=== PATIENT | female | born 1995 | race Caucasian/White ===

== ENCOUNTER 2021-03-19 09:55 | Inpatient (IN) | payer OTHER, SELFPAY ==
[2021-03-19] VITALS (7 sets, daily range): BP systolic 110–141; BP diastolic 78–91; PULSE 88–109; RESP 14–18; TEMP 36.6–39.2; O2SAT 96–100; BMI 27.8; BMI 29.0
--- NOTE | 2021-03-19 10:15 | CT_ITS ---
STUDY: CT ABDOMEN AND PELVIS WITHOUT CONTRAST REASON FOR EXAM: Female, 25 years old. Abdominal pain. The patient is 11 days . RADIATION DOSAGE (If Supplied By Facility): CTDIvol = ( 8.52 ) mGy, DLP = ( 455.68 ) mGycm TECHNIQUE: Transaxial images were obtained from the dome of the diaphragm to the symphysis pubis without oral contrast, and without intravenous contrast. Sagittal and coronal images were reconstructed. Individualized dose optimization techniques were used for this CT. COMPARISON: None. FINDINGS: Patchy bibasilar pulmonary infiltrates worse on the right side. The visualized portions of the heart are within normal limits. Normal liver. Small solitary gallstone. Normal spleen. Normal pancreas. Normal bilateral adrenal glands. Normal right kidney. Normal left kidney. There is a small hiatal hernia. Inflammatory changes are seen within the peritoneal fat in the mid and lower abdomen. There appears to be inflammatory changes of the jejunal loops. A small amount of fluid is seen in the right paracolic gutter. Normal colon. The appendix is visualized and appears normal. Normal abdominal aorta. Normal inferior vena cava. Normal retroperitoneum. Normal urinary bladder. There is diffuse enlargement of the uterus. Normal abdominal wall. Normal osseous structures. CT/Abdomen/Pelvis without Cont IMPRESSION: Diffuse enlargement of the uterus in keeping with recent delivery. Inflammatory changes are seen within the small bowel loops in the region of the jejunum with fluid in the right paracolic gutter. Gastroenteritis should be ruled out. Small gallstone. Bibasilar pulmonary infiltrates worse on the right side. Electronically Signed: Tr Cherry MD at 11:38 EST , Service support ,
--- NOTE | 2021-03-19 10:16 | EDS_ITS ---
HPI HPI - GI History of Present Illness Chief Complaint: Abd Pain Detail of Chief Complaint: Abdominal pain Informant: patient Narrative Narrative: Patient presents to the emergency department complaint of abdominal pain for over a week. Patient states that initially she had fever up to 103. She had decreased appetite. Patient also had some diarrhea intermittently. Patient took amoxicillin for 3 days and saw primary care physician yesterday and continued on amoxicillin. Patient delivered a baby on March 08. She is not having any vaginal bleeding currently. She denies urinary symptoms. She has had no prior abdominal surgeries. She currently rates her pain a 5 out of 10. PFSH PFSH Allergy/AdvReac Type Severity Reaction Status Date / Time No Known Allergies Allergy Verified 03/19/21 09:58 Social History Smoking Status: Never smoker ROS ROS ED Constitutional Constitutional ED: Reports systems reviewed and no addt'l complaints, except as documented; Denies body ache(s), change in weight or chills Eyes Eyes: Denies acute decrease in peripheral vision, change in vision, double vision or loss of vision ENT ENT ED: Reports none; Denies ear pain, lip swelling, loss taste/smell, neck pain, otalgia or sore throat Cardiovascular Cardiovascular: Reports none; Denies abdominal pain, chest pain with activity, leg edema, lightheadedness, palpitations, rapid heart rate or syncope Respiratory/Chest Respiratory/Chest: Reports none; Denies change in mental status, dry cough, dyspnea, hemoptysis, shortness of breath at rest or shortness of breath with exertion Gastrointestinal Gastrointestinal: Reports none, abdominal pain, diarrhea and nausea; Denies change in stool character, hematemesis, hematochezia, melena, rectal bleeding or vomiting Genitourinary Genitourinary ED: Reports none; Denies abdominal discomfort, anuria, dysuria, genital pain or polyuria Musculoskeletal Musculoskeletal: Reports none; Denies arthralgias, back pain, difficulty walking, extremity pain, muscle weakness or myalgias Integumentary Reports none; Denies abscess or rash Neurologic Neurologic: Reports none; Denies abnormal gait, confusion, focal weakness, frequent falls, headache(s), loss of vision, numbness, paresthesias, radicular pain, vertigo or weakness Psychiatric Psychiatric: Reports systems reviewed and no addt'l complaints, except as documented and none; Denies behavioral changes, confusion, difficulty concentrating, hallucinations, suicidal ideation, tactile hallucinations or visual hallucinations Endocrine Endocrinology: Denies none, cold intolerance, excessive sweating, fatigue or heat intolerance Hematologic/Lymphatic Hematologic/Lymphatic: Reports none; Denies anemia, easy bleeding or easy bruising Allergic/Immunologic Allergic/Immunologic ED: Denies as per HPI, none, lip swelling, mouth swelling, throat swelling, tongue swelling or hives EXAM Physical Exam Const Vital Signs: 03/19/21 09:56 03/19/21 13:00 Temperature 98 F Temperature Source Temporal Pulse Rate 109 H Respiratory Rate 18 14 Blood Pressure 110/87 H Blood Pressure Mean 94 Pulse Ox 100 Oxygen Delivery Method Room Air Positive well nourished and well developed General Appearance ED: well developed and NAD HEENT Reports TM's clear and moist mucous membranes normocephalic and atraumatic; Negative for trauma or tenderness Tympanic Membrane ED: Yes TM's clear Eyes PERRL and EOMs intact bilaterally General Eye ED: Negative for pale conjunctiva or scleral icterus Neck no lymphadenopathy, supple and no JVD General: Negative for tenderness Chest Wall inspection of chest normal and palpation of chest normal Chest: Negative for tenderness Resp normal respiratory effort and clear to auscultation bilaterally Effort and Inspection: Negative for respiratory distress or pain with movement Auscultation: Negative for rhonchi, wheezes or diminished lung sounds Cardio regular rate, regular rhythm, S1 normal heart sound, S2 normal heart sound and no murmurs Peripheral Pulses: pulses 2+ throughout GI normal to inspection, nondistended, normoactive bowel sounds, soft to palpation, non-tender, non-distended and no masses GI Narrative: Patient with diffuse tenderness to palpation over the right lower quadrant low left lower quadrant with guarding. She has some mild rebound. No tenderness over right upper quadrant with a negative Baker sign. Palpation: tender Back/Spine no CVA tenderness and no thoracic nor lumbar tenderness Extremity normal to inspection General Extremety ED: Negative for edema General Extremity: Negative for edema Neuro oriented x3, CN's II-XII intact bilaterally, no sensory deficits noted and gait normal Sensorium / Orientation: awake, alert, oriented to person, oriented to place and oriented to time Motor Exam: strength 5/5 throughout and strength abnormal Psych mental status grossly normal Skin no rashes or lesions noted and no wounds MDM MDM MDM Narrative Medical decision making narrative: IV line established on arrival. Patient had a CT scan of the abdomen without contrast initially which showed fluid in the right colic gutter and inflammatory changes of the small bowel. Appendix was not visualized. Ultrasound of the pelvis obtained which showed enlarged uterus without evidence of of retained products. I discussed case with general surgeon on-call as I was concerned about patient's exam and concern for ruptured appendicitis. I started patient on Zosyn. I was asked by surgeon to obtain a CT scan with IV and p.o. contrast which will be performed. Care of patient turned over to evening physician awaiting results and final disposition for abdominal pain Lab Data Attestation: I reviewed the patient's lab results. Labs: Laboratory Results - last 24 hr 03/19/21 03/19/21 03/19/21 10:35 10:35 10:35 WBC 12.1 H RBC 3.61 L Hgb 10.4 L Hct 33.3 L MCV 92.2 MCH 28.8 MCHC 31.2 L RDW Std Deviation 51.8 H RDW Coeff of Ranjana 15.3 H Plt Count 638 H MPV 9.4 Neut % (Auto) Not Reportable Absolute Neuts (auto) 9.8 H Absolute Lymphs (auto) 1.70 Total Counted 100 Neutrophils % (Manual) 81 H Lymphocytes % (Manual) 14 L Myelocytes % 3 H Promyelocytes % 2 H Diff Path Review May foll Platelet Estimate MKD INC RBC Morphology NORM C+C Sodium 139 Potassium 3.8 Chloride 104 Carbon Dioxide 28.0 Anion Gap 7 BUN 6 L Creatinine 0.58 Estim Creat Clear Calc 130.27 Est GFR (MDRD) Af Amer 166 Est GFR (MDRD) Non-Af 137 BUN/Creatinine Ratio 10.4 Glucose 83 Lactic Acid 0.7 Calcium 8.4 L Total Bilirubin 0.30 AST 18 ALT 21 Alkaline Phosphatase 131 H Total Protein 8.0 Albumin 1.9 L Globulin 6.1 H Albumin/Globulin Ratio 0.3 L Urine Color Urine Clarity Urine pH Ur Specific [place] Urine Protein Urine Glucose (UA) Urine Ketones Urine Occult Blood Urine Nitrite Urine Bilirubin Urine Urobilinogen Ur Leukocyte Esterase Urine RBC Urine WBC Ur Squamous Epith Cells Urine Bacteria Urine Mucus 03/19/21 11:00 WBC RBC Hgb Hct MCV MCH MCHC RDW Std Deviation RDW Coeff of Ranjana Plt Count MPV Neut % (Auto) Absolute Neuts (auto) Absolute Lymphs (auto) Total Counted Neutrophils % (Manual) Lymphocytes % (Manual) Myelocytes % Promyelocytes % Diff Path Review Platelet Estimate RBC Morphology Sodium Potassium Chloride Carbon Dioxide Anion Gap BUN Creatinine Estim Creat Clear Calc Est GFR (MDRD) Af Amer Est GFR (MDRD) Non-Af BUN/Creatinine Ratio Glucose Lactic Acid Calcium Total Bilirubin AST ALT Alkaline Phosphatase Total Protein Albumin Globulin Albumin/Globulin Ratio Urine Color Yellow Urine Clarity Clear Urine pH 7.0 Ur Specific [place] 1.010 Urine Protein Negative Urine Glucose (UA) Normal Urine Ketones 5 H Urine Occult Blood 25 H Urine Nitrite Negative Urine Bilirubin Negative Urine Urobilinogen Normal Ur Leukocyte Esterase 100 H Urine RBC 0 SEEN Urine WBC 10-25 SEEN Ur Squamous Epith Cells 0-5 SEEN Urine Bacteria 1+ Urine Mucus 0 SEEN Radiography Diagnostic Testing: Clinical Impression(s) from Imaging Studies Abdomen/Pelvis CT 03/19/21 10:15 IMPRESSION: Diffuse enlargement of the uterus in keeping with recent delivery. Inflammatory changes are seen within the small bowel loops in the region of the jejunum with fluid in the right paracolic gutter. Gastroenteritis should be ruled out. Small gallstone. Bibasilar pulmonary infiltrates worse on the right side. Electronically Signed: Tr Cherry MD at 11:38 EST , Service support , ADDENDUM: 03/19/21 1239 Pelvis Ultrasound 03/19/21 11:40 IMPRESSION: Enlarged uterus. Small amount of free fluid in the pelvis. Electronically Signed: Tr Cherry MD at 13:04 EST , Service support , Discharge Plan Triage Chief Complaint: Abd Pain ED Provider: Sudhir Metcalf Dx/Rx/DC Orders Clinical Impression: Abdominal pain Primary Care Provider: Can Solo Referrals: Can Solo DO [Primary Care Provider] -
[2021-03-19 10:42] LABS: Hematocrit 33.3 % (37-47); Hemoglobin 10.4 g/dL (12.0-15.0); Mean Corp Hgb Conc 31.2 g/dL (32-36); Mean Corpuscular Hgb 28.8 pg (27.0-32.0); Mean Corpuscular Volume 92.2 fL (81-99); Mean Platelet Vol. 9.4 fl (6.2-12.0); POSITIVE COUNT YES; POSITIVE MORPHOLOGY YES; Platelet Count 638 K/mm3 (150-450); RBC Distribution Width CV 15.3 % (11.6-14.6); RBC Distribution Width SD 51.8 fl (35.1-43.9); Red Blood Count 3.61 M/mm3 (4.2-5.4); White Blood Count 12.1 K/mm3 (4.4-11.0)
[2021-03-19 10:44] LABS: Differential Indicated MANUAL DIFF
[2021-03-19 10:59] LABS: ALB/GLOB Ratio 0.3 RATIO (0.9-2.4); AST(SGOT) 18 U/L (15-37); Alanine Aminotransfer ALT/SGPT 21 U/L (13-56); Albumin, Serum 1.9 g/dL (3.2-5.0); Alkaline Phosphatase 131 U/L (45-117); Anion Gap 7 (5-15); BUN 6 mg/dL (7-18); BUN/Creat Ratio 10.4 RATIO (10-20); Calcium,Total 8.4 mg/dL (8.5-10.1); Chloride 104 mmol/L (98-107); Creatinine, Serum 0.58 mg/dL (0.55-1.02); EST Glomerular Filtration Rate 137 mL/min (>60); Est Glom Filt Rate - Afr Amer 166 mL/min (>60); Estimated Creatinine Clearance 130.27 ml/min; Globulin 6.1 g/dL (2.2-4.2); Glucose 83 mg/dL (74-106); Potassium 3.8 mmol/L (3.5-5.1); Sodium Level 139 mmol/L (136-145)
[2021-03-19 11:05] LABS: Lactic Acid 0.7 mmol/L (0.4-1.9)
[2021-03-19 11:09] LABS: Lymphocyte 14 % (19-41); Myelocyte 3 % (0-0); Neutrophil-Segmented 81 % (47-70); Promyelocyte 2 % (0-0); Total Cells Counted 100 (MANUAL DIFF)
[2021-03-19 11:10] LABS: Platelet Estimate MKD INC (ADEQ); Red Cell Morphology NORM C+C NORMAL (NORM C&C)
[2021-03-19 11:11] LABS: Mucous, Urine 0 SEEN /hpf (<or=2+); Red Blood Cells-Urine 0 SEEN /hpf (0-5)
[2021-03-19 11:11] LABS: Absolute Neutrophil Count 9.8 X10^3/uL (2.0-7.7)
[2021-03-19 11:13] LABS: Color, Urine Yellow (Yellow); Glucose, Dipstick Normal (Normal); Ketone-Dipstick 5 mg/dl (Negative); Leukocyte Esterase-Dipstick 100 /ul (Negative); Nitrite-Dipstick Negative (Negative); Occult Blood-Urine 25 /ul (Negative); Protein-Dipstick Negative (Negative); Urine Bilirubin Dipstick Negative (Negative); Urine Clarity Clear (Clear); Urine Urobilinogen Normal (Normal)
[2021-03-19 11:20] LABS: Bacteria 1+ /hpf (None Seen); Squamous Epithelial Cells - UA 0-5 SEEN /hpf (5-10); White Blood Cells 10-25 SEEN /hpf (0-5)
--- NOTE | 2021-03-19 11:40 | US_ITS ---
STUDY: ULTRASOUND OF THE FEMALE PELVIS - COMPLETE REASON FOR EXAM: Female, 25 years old. Pelvic pain, rule out retained products LMP: Recent . TECHNIQUE: Transabdominal and Transvaginal TECHNICAL QUALITY: Adequate. COMPARISON: None. FINDINGS: The uterus is anteverted and is in a midline position. The uterus measures 15.6 cm x 9.1 cm x 6.8 cm. Normal uterine cervix. The endometrium measures 4 mm in thickness, and is hyperechoic. There is no demonstrated endometrial mass. There is no demonstrated myometrial mass. I.U.D. - The patient does not have an I.U.D. The right ovary is visualized. The right ovary measures 5.2 cm x 4.2 cm x 3.9 cm. There is no right ovarian cyst or ovarian mass. There is no visualized right adnexal mass or complex lesion. There is normal arterial and normal venous vascularity. The left ovary is visualized. The left ovary measures 4.1 cm x 4.5 cm x 3.9 cm. There is no left ovarian cyst or ovarian mass. There is no visualized left adnexal mass or complex lesion. There is normal arterial and normal venous vascularity. There is minimal fluid in the cul-de-sac. The pre void volume of the bladder was 273 ml. US/Pelvic (Non ) IMPRESSION: Enlarged uterus. Small amount of free fluid in the pelvis. Electronically Signed: Tr Cherry MD at 13:04 EST , Service support ,
[2021-03-19] MEDS: 0.9% Normal Saline 1,000 ML 125 ML IV ×2 (11:55→21:12)
--- NOTE | 2021-03-19 12:20 | ED.RN ---
Due to concerns regarding nursing infant child, patient refused pain and nausea medications. Patient stated pain was tolerable without being medicated at 5/10.
--- NOTE | 2021-03-19 14:02 | CT_ITS ---
We are attempting to reach an attending provider to discuss findings. An addendum with communication details will be sent when the communication is complete. STUDY: CT Abdomen And Pelvis W/ Contrast Injection 03/19/2021 4:35 PM REASON FOR EXAM: Female, 25 years old. VAGINAL DELIVERY X11 DAYS AGO PAIN IN ABD SINCE DELIVERYabdominal pain TECHNIQUE: Transaxial images were obtained with oral contrast, and with Oral and IV Gastrografin 100mL Isovue-370 intravenous contrast. Individualized dose optimization techniques were used for this CT. COMPARISON: Mar 19 2021 11:23am ct without . FINDINGS: The visualized lung bases are unremarkable. There is bilateral pneumonia. There are bilateral pleural effusions. There is periportal edema noted. There is a solitary gallstone. Normal spleen. Normal pancreas. Ascites. Normal bilateral adrenal glands. No acute findings of the right kidney. No acute findings of the left kidney. Normal visualized stomach. Normal small intestine. Stool throughout the colon. There is non-visualization of the appendix. There are no acute findings of the abdominal aorta. Normal inferior vena cava. Subcentimeter mesenteric lymph nodes. Mesenteric free fluid. Normal urinary bladder. Enlargement of the uterus is consistent for a uterus. Fluid collection in the pelvis measures 39 x 32 mm. This concerning for pelvic abscess. Bilateral adnexal tubular fluid collections suggesting abscess formation around uterus versus tubo-ovarian abscesses. There is an umbilical hernia containing fat. Normal osseous structures. IMPRESSION: (NOT LISTED IN ORDER OF SIGNIFICANCE) Fluid collection in the pelvis measures 39 x 32 mm. This concerning for pelvic abscess. Bilateral adnexal tubular fluid collections suggesting abscess formation around uterus versus tubo-ovarian abscesses. Enlargement of the uterus is consistent for a uterus. There are bilateral pleural effusions. There is bilateral pneumonia. Ascites. There is a solitary gallstone. Other findings as above. Electronically Signed: Sukhjinder Palacios MD at 16:41 EST , Service support , CT/Abdomen/Pelvis WITH Contrast
--- NOTE | 2021-03-19 17:07 | EDS_ITS ---
HPI History of Present Illness Chief Complaint: Abd Pain PFSH PFSH Allergy/AdvReac Type Severity Reaction Status Date / Time No Known Allergies Allergy Verified 03/19/21 09:58 Social History Smoking Status: Never smoker EXAM Physical Exam Const Vital Signs: 03/19/21 09:56 03/19/21 13:00 03/19/21 15:00 Temperature 98 F 102.6 F H Temperature Source Temporal Oral Pulse Rate 109 H 88 Respiratory Rate 18 14 Blood Pressure 110/87 H 131/78 H Blood Pressure Mean 94 95 Pulse Ox 100 Oxygen Delivery Method Room Air 03/19/21 16:42 Temperature 102.5 F H Temperature Source Oral Pulse Rate 92 Respiratory Rate Blood Pressure 141/91 H Blood Pressure Mean 107 Pulse Ox Oxygen Delivery Method MDM MDM MDM Narrative Medical decision making narrative: Patient turned over to me from Dr. Sudhir Metcalf. CAT scan showed pelvic abscesses. Rule out possible tubo-ovarian abscess. I discussed this with Dr. Lyndsey Victor on-call for [employer] [employer]. She will admit the patient. Patient is already been treated with Zosyn. Currently she is stable and resting comfortably. I discussed the diagnosis of both her and her at bedside. Lab Data Labs: Laboratory Results - last 24 hr 03/19/21 03/19/21 03/19/21 10:35 10:35 10:35 WBC 12.1 H RBC 3.61 L Hgb 10.4 L Hct 33.3 L MCV 92.2 MCH 28.8 MCHC 31.2 L RDW Std Deviation 51.8 H RDW Coeff of Ranjana 15.3 H Plt Count 638 H MPV 9.4 Neut % (Auto) Not Reportable Absolute Neuts (auto) 9.8 H Absolute Lymphs (auto) 1.70 Total Counted 100 Neutrophils % (Manual) 81 H Lymphocytes % (Manual) 14 L Myelocytes % 3 H Promyelocytes % 2 H Diff Path Review May foll Platelet Estimate MKD INC RBC Morphology NORM C+C Sodium 139 Potassium 3.8 Chloride 104 Carbon Dioxide 28.0 Anion Gap 7 BUN 6 L Creatinine 0.58 Estim Creat Clear Calc 130.27 Est GFR (MDRD) Af Amer 166 Est GFR (MDRD) Non-Af 137 BUN/Creatinine Ratio 10.4 Glucose 83 Lactic Acid 0.7 Calcium 8.4 L Total Bilirubin 0.30 AST 18 ALT 21 Alkaline Phosphatase 131 H Total Protein 8.0 Albumin 1.9 L Globulin 6.1 H Albumin/Globulin Ratio 0.3 L Urine Color Urine Clarity Urine pH Ur Specific [place] Urine Protein Urine Glucose (UA) Urine Ketones Urine Occult Blood Urine Nitrite Urine Bilirubin Urine Urobilinogen Ur Leukocyte Esterase Urine RBC Urine WBC Ur Squamous Epith Cells Urine Bacteria Urine Mucus 03/19/21 11:00 WBC RBC Hgb Hct MCV MCH MCHC RDW Std Deviation RDW Coeff of Ranjana Plt Count MPV Neut % (Auto) Absolute Neuts (auto) Absolute Lymphs (auto) Total Counted Neutrophils % (Manual) Lymphocytes % (Manual) Myelocytes % Promyelocytes % Diff Path Review Platelet Estimate RBC Morphology Sodium Potassium Chloride Carbon Dioxide Anion Gap BUN Creatinine Estim Creat Clear Calc Est GFR (MDRD) Af Amer Est GFR (MDRD) Non-Af BUN/Creatinine Ratio Glucose Lactic Acid Calcium Total Bilirubin AST ALT Alkaline Phosphatase Total Protein Albumin Globulin Albumin/Globulin Ratio Urine Color Yellow Urine Clarity Clear Urine pH 7.0 Ur Specific [place] 1.010 Urine Protein Negative Urine Glucose (UA) Normal Urine Ketones 5 H Urine Occult Blood 25 H Urine Nitrite Negative Urine Bilirubin Negative Urine Urobilinogen Normal Ur Leukocyte Esterase 100 H Urine RBC 0 SEEN Urine WBC 10-25 SEEN Ur Squamous Epith Cells 0-5 SEEN Urine Bacteria 1+ Urine Mucus 0 SEEN Radiography Diagnostic Testing: Clinical Impression(s) from Imaging Studies Abdomen/Pelvis CT 03/19/21 10:15 IMPRESSION: Diffuse enlargement of the uterus in keeping with recent delivery. Inflammatory changes are seen within the small bowel loops in the region of the jejunum with fluid in the right paracolic gutter. Gastroenteritis should be ruled out. Small gallstone. Bibasilar pulmonary infiltrates worse on the right side. Electronically Signed: Tr Cherry MD at 11:38 EST , Service support , ADDENDUM: 03/19/21 1239 Pelvis Ultrasound 03/19/21 11:40 IMPRESSION: Enlarged uterus. Small amount of free fluid in the pelvis. Electronically Signed: Tr Cherry MD at 13:04 EST , Service support , Abdomen/Pelvis CT 03/19/21 14:02 ADDENDUM: 03/19/21 1654 ADDENDUM: 03/19/21 1700 Discharge Plan Triage Chief Complaint: Abd Pain ED Provider: Sudhir Metcalf Dx/Rx/DC Orders Clinical Impression: Abdominal pain, Abscess of female pelvis Primary Care Provider: Can Solo Referrals: Can Solo DO [Primary Care Provider] - Disposition Disposition: Acute Care Hospital [facility]
[2021-03-19] MEDS: morphine 8 MG/ML Syringe 6 MG IV (17:34)
[2021-03-19] MEDS: Acetaminophen 500 MG Tablet 1000 MG PO (17:34)
--- NOTE | 2021-03-19 18:08 | NURSING ---
Electric breast pump double brought to ER for mother who possibly may be having surgery. Instructions given on the pump and the cleaning of the pump to both mother and father.
--- NOTE | 2021-03-19 18:15 | ED.RN ---
Prednisone entered on wrong patient
--- NOTE | 2021-03-20 00:08 | PCS.PANDOC ---
PANDEMIC DOCUMENTATION INITIATED: Date: 10/28/2020 Time: 190
[2021-03-20 03:30] VITALS: BP 138/80; PULSE 87; RESP 16; TEMP 36.8; O2SAT 94
[2021-03-20] MEDS: 0.9% Normal Saline 1,000 ML 125 ML IV ×3 (03:54→21:45)
--- NOTE | 2021-03-20 09:06 | PCM.HP.OB ---
HPI - General General Date of Admission: 03/19/21 HPI Narrative LARON REEVES, is a 25 F who presents with abdominal pain. She had a vaginal delivery 11 days ago at a birthing center with her journeyman carpenter. She reports the was uncomplicated and delivery was uncomplicated as well. She says her labor was about 4.5 hours. No vaginal infections in the . Sexually active and no history of STD's. She says over the course of the last week she has had bilateral lower abdominal pain that radiates into her sides. She was having fevers at home as well. The pain improves when she lays flat. She has also had a cough. No other URI symptoms. No CP or SOB. No change in BM's, difficulty with urination, vaginal discharge. Light bleeding/spotting since delivery. No breast complaints and she is , which is going well. No leg pain or worsening swelling. She says she is otherwsie healthy and has no medical problems. [facility] Medical History (Updated 03/20/21 @ 09:[address] Roberta Sheets, ) Depression Home Medications fluoxetine 20 mg PO QHS 03/19/21 [History Last Taken 03/18/21] Allergy/AdvReac Type Severity Reaction Status Date / Time No Known Allergies Allergy Verified 03/19/21 09:58 Surgical History no surgical history Social History Smoking Status: Never smoker Vital Signs Vital Signs Vital Signs: 03/19/21 09:56 03/19/21 13:00 03/19/21 15:00 Temperature 98 F 102.6 F H Temperature Source Temporal Oral Pulse Rate 109 H 88 Pulse Strength Respiratory Rate 18 14 Respiratory Effort Respiratory Depth Respiratory Pattern Blood Pressure 110/87 H 131/78 H Blood Pressure Mean 94 95 Blood Pressure Source Blood Pressure Position Blood Pressure Location Pulse Ox 100 Oxygen Delivery Method Room Air 03/19/21 16:42 03/19/21 17:38 03/19/21 18:18 Temperature 102.5 F H 101.2 F H 100.2 F H Temperature Source Oral Temporal Oral Pulse Rate 92 90 89 Pulse Strength Respiratory Rate 16 Respiratory Effort Respiratory Depth Respiratory Pattern Blood Pressure 141/91 H 133/84 H 130/79 H Blood Pressure Mean 107 100 96 Blood Pressure Source Blood Pressure Position Blood Pressure Location Pulse Ox 99 Oxygen Delivery Method Room Air 03/19/21 19:01 03/19/21 19:05 03/19/21 22:00 Temperature 98.9 F Temperature Source Oral Pulse Rate 90 Pulse Strength Normal (2+) Respiratory Rate 18 Respiratory Effort Normal Non-Labored Respiratory Depth Normal Respiratory Pattern Normal Blood Pressure 132/81 H Blood Pressure Mean 98 Blood Pressure Source Monitor Blood Pressure Position Semi-Fowlers Blood Pressure Location Right Arm Pulse Ox 96 Oxygen Delivery Method Room Air Room Air 03/20/21 03:30 Temperature 98.3 F Temperature Source Oral Pulse Rate 87 Pulse Strength Respiratory Rate 16 Respiratory Effort Respiratory Depth Respiratory Pattern Blood Pressure 138/80 H Blood Pressure Mean 99 Blood Pressure Source Monitor Blood Pressure Position Semi-Fowlers Blood Pressure Location Right Arm Pulse Ox 94 Oxygen Delivery Method Room Air Weight Weight: 169 lb Body Mass Index (BMI) 29.0 Physical Exam Const alert and no apparent distress General Appearance: comfortable HEENT normocephalic Resp normal respiratory effort GI soft to palpation and non-distended GI Narrative: FF@U-1, +tenderness across lower pelvis, non acute Extremity no calf tenderness Extremity Narrative: Minimal swelling of LE bilaterally, no pitting edema Labs Labs Labs: Hct 33.3 % (37-47) L Hgb 10.4 g/dL (12.0-15.0) L Assessment & Plan (1) Abscess of female pelvis: PLAN: Pt with fevers and abdominal pain after an uncomplicated vaginal delivery with a goods layer. Reviewed imaging findings with pt and her partner. Pelvic US unremarkable and no evidence of retained placenta. CT scan shows a pelvic abscess and also a pneumonia. Covid negative on admission. Clinically concern is for TOA/pelvic abscess for which she was admitted for overnight. Will allow for regular diet at this time. Discussed with patient if clinically not improving or persistent fevers, will need to make NPO to consider possible drain placement but I think this is unlikely given size of abscess. Check labs in AM. Called pharmacy to discuss antibiotic regimen given . Plan will be to continue Zosyn inpatient, and once patient is afebrile for at least 24 hours with clinical improvement, will transition to Levofloxacin and Metronidazole as unable to give Doxycycline while . Discussed with patient she will need to follow up in our office after this admission for repeat imaging. Also discussed concern/possibility for tubal damage and infertility in the future. All questions answered. Dispo: Inpatient care for IV antibiotics. Recheck labs in AM and will reassess at that time. (2) Abdominal pain: (3) Mother currently breast-feeding: PLAN: Infant at bedside. going well. (4) fever: PLAN: No evidence of DVT. Breasts normal. Workup completed in ER. If patient not clinically improving, will also recommend consult to medicine given pneumonia being reported on CT scan. Discussed antibiotic regimen with pharmacy, which would also cover for a pneumonia. Patient will need to follow up with a PCP as an outpatient at the least. (5) Status post vaginal delivery: PLAN: Fundus firm and bleeding minimal.
[2021-03-20 09:30] VITALS: BP 136/75; PULSE 76; RESP 16; TEMP 37.2; O2SAT 95
[2021-03-20] MEDS: Acetaminophen 325 MG Tablet 650 MG PO ×2 (09:40→21:43)
--- NOTE | 2021-03-20 11:45 | CASEMGMT ---
RN EMEKA Face to Face with patient for initial transition planning/care coordination assessment. RN CM introduced self and role at [facility]. Patient lying in bed, alert and oriented, at bedside with . Patient willing to participate in assessment and is able to answer all questions appropriately. Care providers, pharmacy, and demographics verified. Patient wishes to discharge home, denies need for home health at this time. Patient states she has no further needs or concerns at this time. CM to follow for discharge planning needs that may arise. PCP: Dr. Solo Specialists: none Preferred Pharmacy: [facility] retail at discharge Insurance: none, [employer]ogi Prescription Benefit: none Living Will/HPOA: none LNOK: Living Arrangements: Patient lives with in a 3 story home with bed and bath on first floor. Patient states she is independent at home. Transportation: Driving service DME/HHC: Patient denies DME at home. No previous HHC or SNF. Disposition Plan: Patient to discharge home with family support and follow-up plans in place. Mariam FU, RN, CM
[2021-03-20] MEDS: 0.9% Saline Lock 10 ML Syringe IV (12:52)
[2021-03-20 12:58] VITALS: BP 129/79; PULSE 66; RESP 16; TEMP 36.9; O2SAT 94
[2021-03-20] MEDS: Piperacil/Tazobactam 3.375 GM/50 ML ML IV ×2 (14:18→21:34)
[2021-03-20 14:21] VITALS: BP 143/90; PULSE 66; RESP 16; TEMP 36.9; O2SAT 95
--- NOTE | 2021-03-20 17:03 | NURSING ---
Mother states nipple soreness. Dr. Sheets office called for prescription nipple ointment. Reviewed instructions for all purpose nipple ointment. IBCLC will try to watch next evening feeding.
[2021-03-20 18:13] VITALS: BP 142/91; PULSE 76; RESP 16; TEMP 37.4; O2SAT 95
[2021-03-20] MEDS: FLUoxetine 20 MG Capsule PO (21:43)
[2021-03-20 23:01] VITALS: BP 127/82; PULSE 78; RESP 15; TEMP 36.9; O2SAT 98
[2021-03-21 03:43] VITALS: BP 133/84; PULSE 81; RESP 18; TEMP 36.7; O2SAT 97
[2021-03-21] MEDS: Piperacil/Tazobactam 3.375 GM/50 ML ML IV (06:31)
[2021-03-21 06:59] LABS: Absolute Lymphocyte Count 2.36 X10^3/uL (0.83-4.51); Absolute Neutrophil Count 8.7 X10^3/uL (2.0-7.7); Basophil# 0.03 X10^3/uL; Basophil% 0.3 % (0-1); Eosinophil# 0.03 X10^3/uL; Eosinophils% 0.3 % (0-5); Hemoglobin 8.6 g/dL (12.0-15.0); Lymphocyte # 2.36 X10^3/ul (0.83-4.51); Lymphocyte % 19.7 % (19-41); Mean Corp Hgb Conc 31.9 g/dL (32-36); Mean Corpuscular Hgb 29.2 pg (27.0-32.0); Mean Corpuscular Volume 91.5 fL (81-99); Mean Platelet Vol. 9.5 fl (6.2-12.0); Monocyte# 0.61 X10^3/uL; Monocyte% 5.1 % (0-10); NRBC Flagged by Analyzer 0 % (0-5); Neutrophil # 8.67 X10^3/uL (2.7-7.7); Neutrophil % 72.3 % (47-70); Platelet Count 573 K/mm3 (150-450); RBC Distribution Width CV 15.5 % (11.6-14.6); RBC Distribution Width SD 51.8 fl (35.1-43.9); Red Blood Count 2.95 M/mm3 (4.2-5.4)
[2021-03-21 07:33] LABS: Anion Gap 6 (5-15); BUN 8 mg/dL (7-18); BUN/Creat Ratio 15.2 RATIO (10-20); Calcium,Total 7.9 mg/dL (8.5-10.1); Chloride 109 mmol/L (98-107); Creatinine, Serum 0.53 mg/dL (0.55-1.02); EST Glomerular Filtration Rate 152 mL/min (>60); Est Glom Filt Rate - Afr Amer 184 mL/min (>60); Estimated Creatinine Clearance 142.56 ml/min; Glucose 96 mg/dL (74-106); Potassium 3.5 mmol/L (3.5-5.1); Sodium Level 140 mmol/L (136-145)
[2021-03-21 09:16] VITALS: BP 145/88; PULSE 67; RESP 18; TEMP 36.9; O2SAT 95
[2021-03-21 09:59] LABS: Pathologist Review Reviewed
--- NOTE | 2021-03-21 10:37 | PN.OBGYN_ITS ---
Subjective Subjective Pain improved today. Patient feels much better. She would like to go home if possible. Objective Data Objective Data Vital Signs: Vital Signs Temp Pulse Resp BP Pulse Ox 98.4 F 67 18 145/88 H 95 03/21/21 09:16 03/21/21 09:16 03/21/21 09:16 03/21/21 09:16 03/21/21 09:16 Oxygen Delivery Method Room Air Weight: 169 lb Body Mass Index (BMI) 29.0 Intake & Output: Intake and Output for Last 24 Hours 03/19/21 03/20/21 03/21/21 23:59 23:59 23:59 Intake Total 1047.92 / 1047.92 4187.5 / 4187.5 50 / 50 Output Total 850 / 850 Balance 1047.92 / 1047.92 3337.5 / 3337.5 50 / 50 Lab / Micro Data Result Diagrams: 03/21/21 06:12 03/21/21 06:12 Labs: Laboratory Results - last 24 hr 03/19/21 10:35: Diff Path Review Reviewed 03/21/21 06:12: WBC 12.0 H, RBC 2.95 L, Hgb 8.6 L, Hct 27.0 L, MCV 91.5, MCH 29.2, MCHC 31.9 L, RDW Std Deviation 51.8 H, RDW Coeff of Ranjana 15.5 H, Plt Count 573 H, MPV 9.5, Immature Gran % (Auto) 2.300 H, Neut % (Auto) 72.3 H, Lymph % (Auto) 19.7, [place] % (Auto) 5.1, Eos % (Auto) 0.3, Baso % (Auto) 0.3, Absolute Neuts (auto) 8.7 H, Absolute Lymphs (auto) 2.36, Nucleated RBC % 0 03/21/21 06:12: Sodium 140, Potassium 3.5, Chloride 109 H, Carbon Dioxide 25.0, Anion Gap 6, BUN 8, Creatinine 0.53 L, Estim Creat Clear Calc 142.56, Est GFR (MDRD) Af Amer 184, Est GFR (MDRD) Non-Af 152, BUN/Creatinine Ratio 15.2, Glucose 96, Calcium 7.9 L Micro: Microbiology 03/19/21 14:15 Nasal Secretion SARS-CoV-2 Antigen (Rapid) - Final Physical Exam Const alert, oriented x3 and no apparent distress HEENT normocephalic GI soft to palpation, non-tender and non-distended GI Narrative: fundus firm, mid & below umbilicus Extremity normal to inspection and no calf tenderness Assessment & Plan (1) fever: COMMENT: HD#2 PLAN: CT scan shows a pelvic abscess and a pneumonia. Covid negative on admission.Patient is s/p Zosyn with good clinical improvement. She started Levofloxacin and Metronidazole today. 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 discussed this plan with pharmacy. Discussed with patient she will need to follow up in our office after this admission for repeat imaging. (2) Status post vaginal delivery: PLAN: Patient doing well PP. Had some mildly elevated BP's today. Most recent BP normal & patient denies preE symptoms. Labs normal on admission. Patient advised to have BP check in office early next week and call with any concerns.
[2021-03-21] MEDS: levoFLOXacin 500 MG Tablet PO (11:34)
[2021-03-21] MEDS: 0.9% Saline Lock 10 ML Syringe IV (11:34)
[2021-03-21] MEDS: metroNIDAZOLE 500 MG Tablet PO (13:08)
--- NOTE | 2021-03-21 13:58 | PCM.DC ---
Discharge Instructions Diet Discharge Diet: No restrictions Activity Discharge Activity: May Shower May resume sexual activity in: 6 weeks Weight Bearing Status: Weight bearing as tolerated Dressing / Incision Call your doctor if you observe: Fever of 101 or Higher, Coldness, Increased Pain, Change in Color, Inability to urinate, Inability to have a bowel movement, Using more than 1 pad per hour, Shortness of breath, Dizziness, Fainting spells, Chest pain, Increased palpitations (irregular heartbeat), Calf discomfort, Uncontrolled pain and - (Please call for headaches, blurry vision or increased abdominal pain.) Follow Up Care Please Follow Up With: Roberta Sheets DO When: Follow up in 1 week Test Results: Test results from this visit will be discussed in further detail at your follow-up appointment, if applicable. Discharge Plan Admission Admit Date/Time: 03/19/21 19:02 Primary Reason for Your Visit: Lung & pelvic infection Attending Provider: Lyndsey Victor Primary Care Provider: Can Solo Discharge Orders/Prescriptions Prescriptions: New metronidazole 500 mg Tablet 500 mg PO TID Qty: 30 RF: 0 levofloxacin 500 mg tablet 500 mg PO DAILY Qty: 10 RF: 0 Continued fluoxetine 20 mg Tablet 20 mg PO QHS RF: 0 Referrals / Follow Up: Can Solo DO [Primary Care Provider] - Disposition Disposition (needs filled in before D/C Order can be placed): Home, Self Care
[2021-03-21 14:55] VITALS: BP 144/83; PULSE 64; RESP 18; TEMP 37.1; O2SAT 97
[2021-03-21] MEDS: Acetaminophen 325 MG Tablet 650 MG PO (14:59)
[2021-03-21 17:45] VITALS: BP 134/75; PULSE 83
== END 2021-03-21 18:25 | disposition home or self-care (01) | DRG 776 ==
LOC: ED 17:22 → MS2 03-20 09:58
PROVIDERS: Obstetrics & Gynecology; Admitting Provider Obstetrics & Gynecology; Emergency Provider Emergency Medicine; PCP Family Medicine; Visit Provider Obstetrics & Gynecology
DX: O99.893 Other specified diseases and conditions complicating puerperium (principal); N73.9 Female pelvic inflammatory disease, unspecified; O99.53 Diseases of the respiratory system complicating the puerperium; J18.9 Pneumonia, unspecified organism; Z20.822 Contact with and (suspected) exposure to COVID-19; O99.345 Other mental disorders complicating the puerperium; F32.A Depression, unspecified; Z79.899 Other long term (current) drug therapy
CPT/HCPCS: 36415; 74176; 74177; 76856; 80048; 80053; 81001; 83605; 85025; 87426; 97802; 99284; J7030; Q9967; A4216; J2405